=== PATIENT | female | born 1940 | race Caucasian/White ===

== ENCOUNTER → 2016-12-07 | Day surgery (SDC) | payer OTHER ==
[~2016-12-07] VITALS: Ht 154.9 cm; Wt 52.6 kg
--- NOTE | 2016-12-21 13:21 | Operative Report ---
Operative/Inv Procedure Report Surgery Date: 12/07/16 Name of Procedure: Excisional biopsy Pre-Operative Diagnosis: Vulva lesion Post-Operative Diagnosis: Buttock lesion Estimated Blood Loss: scant Surgeon/Business Analytics Manager: SENA FERGUSON MD Anesthesia: moderate sedation, block Operative/Procedure Note Note: C general patient was taken the operating room placed prone position after adequate anesthesia patient placed in dorsolithotomy position I Marcaine was placed underneath the lesion at this point there were no lymphadenopathy noted on examination under anesthesia on the eye knife was used to remove an area of the skin is under the lesion on the skin edges were reapproximated in layers using 30 patient tolerated that well on at this point hemostasis was apparent counts correct patient was awakened from anesthesia and transferred recovery room awake alert Findings: Left circumscribed 1 cm lesion with thebuttock meets the vulva
== END ==
LOC: STS 04:02
DX: C44.529 Squamous cell carcinoma of skin of other part of trunk (principal); J44.9 Chronic obstructive pulmonary disease, unspecified; F17.200 Nicotine dependence, unspecified, uncomplicated; K21.9 Gastro-esophageal reflux disease without esophagitis
CPT/HCPCS: J2250